=== PATIENT | female | born 1985 | race Caucasian/White ===

== ENCOUNTER 2016-12-28 17:52 | Observation (INO) | payer MEDICAID ==
[~2016-12-28 17:52] MED LIST: PRENATAL VITAM1 EAC5
[2016-12-29] MEDS ORDERED: FOLIC ACID1 M1 PO ×2 (06:33→06:36)
== END 2016-12-28 20:35 ==
LOC: LDR 17:52
PROVIDERS: ADMIT Obstetrics & Gynecology
DX: O47.1 False labor at or after 37 completed weeks of gestation (principal); Z3A.39 39 weeks gestation of pregnancy; Z79.899 Other long term (current) drug therapy

== ENCOUNTER 2016-12-29 05:57 | Inpatient (IN) | payer MEDICAID ==
[2016-12-29] MEDS ORDERED: FOLIC ACID1 M1 PO ×2 (06:33→06:36)
[2016-12-30 07:32] LABS: BASO % 0.1 % (0-2); EOS % 0.1 % (0-7); HCT-HEMATOCRIT 30.9 % (34.0-49.0); HGB-HEMOGLOBIN 10.3 gm/dl (12.0-15.5); IMMATURE GRANULOCYTES ABSOLUTE 0.03 tho/cmm (0-0.03); IMMATURE GRANULOCYTES PERCENT 0.2 % (0-0.3); LYMPH % 12.2 % (20-45); LYMPH ABSOLUTE COUNT 1.9 tho/cmm (0.8-4.5); MCH (MEAN CORPUSCULAR HGB) 27.5 pg (28.0-32.0); MCHC MEAN CORPUSCULAR HGB CONC 33.3 % (32.0-36.0); MCV (MEAN CELL VOLUME) 82.6 fl (82.0-96.0); MEAN PLATELET VOLUME 10.9 cmc (9.4-12.4); MONO % 9.5 % (0-12); MONOCYTE ABSOLUTE COUNT 1.4 tho/cmm (0.0-1.2); NEUTROPHIL ABSOLUTE COUNT 11.8 tho/cmm (1.6-8.0); NEUTROPHIL-AUTOMATED 11.8 tho/cmm (1.6-8.0); NEUTROPHILS % 77.9 % (40-80); PLATELET COUNT 237 tho/cmm (150-450); RED BLOOD COUNT 3.74 mil/cmm (4.00-5.20); WHITE BLOOD COUNT 15.1 tho/cmm (4.0-10.0)
[2016-12-30] MEDS ORDERED: IBUPROFEN800 M1 PO (11:14)
[2016-12-30] MEDS ORDERED: NORCO 5-325 TA1 EACH PO (11:15)
== END 2016-12-30 21:25 | DRG 767 ==
LOC: LDR 05:57 → OBGE 20:38
PROVIDERS: ADMIT Obstetrics & Gynecology
PROC: 10D07Z6 Extraction of Products of Conception, Vacuum, Via Natural or Artificial Opening (ICD-10-PCS; principal; 2016-12-29)
PROC: 10D17ZZ Extraction of Products of Conception, Retained, Via Natural or Artificial Opening (ICD-10-PCS; 2016-12-29)
PROC: 10907ZC Drainage of Amniotic Fluid, Therapeutic from Products of Conception, Via Natural or Artificial Opening (ICD-10-PCS; 2016-12-29)
DX: O73.0 Retained placenta without hemorrhage (principal); Z37.0 Single live birth; O77.0 Labor and delivery complicated by meconium in amniotic fluid; Z3A.39 39 weeks gestation of pregnancy; O75.89 Other specified complications of labor and delivery
CPT/HCPCS: J0690; J2590; J2791; J3010